=== PATIENT | female | born 1940 | race Two or more races ===

== ENCOUNTER 2019-11-02 14:35 | Outpatient (CLI) | payer OTHER | END 2019-11-02 15:00 | disposition home or self-care (01) | LOC: OFIC 805 14:35 | PROVIDERS: ATTEND Otolaryngology | DX: R04.0 Epistaxis (principal) ==

== ENCOUNTER 2019-12-07 14:42 | Outpatient (CLI) | payer OTHER | END 2019-12-07 15:20 | disposition home or self-care (01) | LOC: OFIC 805 14:42 | PROVIDERS: ATTEND Otolaryngology | DX: R04.0 Epistaxis (principal) ==

== ENCOUNTER 2021-11-29 07:30 | Inpatient (IN) | payer OTHER ==
[~2021-11-29] VITALS: Ht 152.4 cm; Wt 66.2 kg
[2021-11-29] MEDS ORDERED: ATORVASTATIN CA40 MG (09:31)
[2021-11-29] MEDS ORDERED: ZESTRIL10 M1 (09:31)
[2021-12-04] MEDS ORDERED: LEVOTHYROXINE75 MCG (08:01)
[2021-12-04] MEDS ORDERED: ALENDRONATE SOD70 MG (08:01)
[2021-12-06] MEDS ORDERED: PERCOCET 5-3251 EACH PO (15:52)
[2021-12-06] MEDS ORDERED: ELIQUIS2.5 MG PO (15:52)
[2021-12-06] MEDS ORDERED: CIPROFLOXACIN500 MG PO (15:52)
== END 2021-12-07 17:23 | DRG 470 ==
LOC: SURG 12-04 05:39 → O/R 12-04 05:39 → SURG 12-04 07:30 → SURH 12-06 13:52 → SURG 12-06 16:29
PROVIDERS: ADMIT Orthopaedic Surgery; ATTEND Orthopaedic Surgery
PROC: 3E0F7SF Introduction of Other Gas into Respiratory Tract, Via Natural or Artificial Opening (ICD-10-PCS; 2021-12-04)
PROC: 0SRC0J9 Replacement of Right Knee Joint with Synthetic Substitute, Cemented, Open Approach (ICD-10-PCS; principal; 2021-12-04 10:00)
DX: M17.11 Unilateral primary osteoarthritis, right knee (principal); M22.11 Recurrent subluxation of patella, right knee; M81.0 Age-related osteoporosis without current pathological fracture; I10 Essential (primary) hypertension